=== PATIENT | male | born 1960 | race Caucasian/White ===

== ENCOUNTER 2017-10-01 06:47 | Day surgery (SDC) | payer BC ==
--- NOTE | 2017-10-01 07:03 | PCM.PREANE ---
Preanesthetic Assessment - Anesthesia/Transfusion/Family Hx Anesthesia History: Prior Anesthesia Without Reaction Family History of Anesthesia Reaction: No Transfusion History: No Prior Transfusion(s) - Review of Systems General: No Symptoms, Other Pulmonary: No Symptoms Cardiovascular: No Symptoms, Other (HTN, high cholesterol, 3 stents 2013) Gastrointestinal: No Symptoms Neurological: No Symptoms Other: Reports: Diabetes (type 2, on oral agents, blood glucose 151 at 0450) - Physical Assessment NPO Status Date: 10/01/17 NPO Status Time: 05:00 (had muffin) Pulse: 79 O2 Sat by Pulse Oximetry: 94 Respiratory Rate: 16 Blood Pressure: 163/70 Weight: 127.006 kg ASA Class: 2 Mental Status: Alert & Oriented x3 Airway Class: Mallampati = 2 Dentition: Reports: Normal Dentition Thyro-Mental Finger Breadths: 3 Mouth Opening Finger Breadths: 3 ROM/Head Extension: Full Lungs: Clear to Auscultation, Normal Respiratory Effort Cardiovascular: Regular Rate, Regular Rhythm - Allergies Allergies/Adverse Reactions: Allergies Allergy/AdvReac Type Severity Reaction Status Date / Time No Known Allergies Allergy Verified 09/30/17 15:39 - Blood Blood Available: No Product(s) Available: None - Anesthesia Plan Pre-Op Medication Ordered: None - Acknowledgements Anesthesia Type Planned: MAC Pt an Appropriate Candidate for the Planned Anesthesia: Yes Alternatives and Risks of Anesthesia Discussed w Pt/Guardian: Yes Pt/Guardian Understands and Agrees with Anesthesia Plan: Yes PreAnesthesia Questionnaire - HOME MEDS Home Medications: Home Meds Aspirin [Luci Chewable Aspirin] 81 mg PO DAILY 09/30/17 [History] Hydrochlorothiazide [Hydrochlorothiazide] 25 mg PO DAILY 09/30/17 [History] Lisinopril [Prinivil] 30 mg PO DAILY 09/30/17 [History] Nitroglycerin 0.4 mg SL ASDIRECTED PRN 09/30/17 [History] atorvaSTATin Calcium [Atorvastatin Calcium] 80 mg PO DAILY 09/30/17 [History] metFORMIN HCl [Metformin HCl] 1,000 mg PO BID 09/30/17 [History] - CURRENT (IN HOUSE) MEDS Current Meds: Current Medications Brimonidine Tartrate (Alphagan 0.2% Ophth Soln) 0 ml EYELF ASDIRECTED SOMMER Stop: 10/01/17 18:00 Cefuroxime Sodium (Zinacef) 0 mg EYELF ASDIRECTED SOMMER Stop: 10/01/17 18:00 Lidocaine HCl (Xylocaine-Mpf 1%) 10 ml INJECT ASDIRECTED SOMMER Stop: 10/01/17 18:00 Phenylephrine HCl (Saqib-Synephrine 2.5% Ophth Soln) 0 ml EYELF ASDIRECTED SOMMER Stop: 10/01/17 18:00 Pilocarpine HCl (Pilocar 4% Ophth Soln) 0 ml EYELF ASDIRECTED SOMMER Stop: 10/01/17 18:00 Polymyxin/Trimethoprim Sulfate (Polytrim Ophth Soln) 0 ml EYELF ASDIRECTED SOMMER Stop: 10/01/17 18:00 Tetracaine HCl (Tetracaine 0.5% Steri-Unit [place]) 0 ml EYELF ASDIRECTED SOMMER Stop: 10/01/17 18:00 Tropicamide (Mydriacyl 1% Ophth Soln) 0 ml EYELF ASDIRECTED SOMMER Stop: 10/01/17 18:00
[2017-10-01] MEDS: Polymyxin B/Trimethoprim 10 ML Bottle EYELF SCH ×4 (07:05→08:38)
[2017-10-01] MEDS: Brimonidine 0.2% Ophth Soln 5 ML Bottle EYELF SCH ×4 (07:12→08:38)
[2017-10-01] MEDS: Phenylephrine 2.5% Ophth Soln 2 ML Bot EYELF SCH ×6 (07:16→08:17)
[2017-10-01] MEDS: Lidocaine 1% PF 2 ML SDV INJECT SCH ×2 (07:41→08:26)
[2017-10-01] MEDS: Pilocarpine 4% Ophth Soln 15 ML Bot EYELF SCH ×2 (07:42→08:38)
[2017-10-01] MEDS: Tetracaine HCl/PF 0.5% 4 ML Bottle EYELF SCH ×3 (07:42→08:31)
[2017-10-01] MEDS: Cefuroxime 10 MG/ML SYRINGE EYELF SCH ×2 (07:43→08:36)
--- NOTE | 2017-10-01 08:40 | PCM48HPAN ---
Post Anesthesia Note - EVALUATION WITHIN 48HRS OF ANESTHETIC Vital Signs in Normal Range: Yes Patient Participated in Evaluation: Yes Respiratory Function Stable: Yes Airway Patent: Yes Cardiovascular Function Stable: Yes Hydration Status Stable: Yes Pain Control Satisfactory: Yes Nausea and Vomiting Control Satisfactory: Yes Mental Status Recovered: Yes Pulse Rate: 69 SaO2: 98 Resp Rate: 16 Temperature: 37 C Blood Pressure: 166/100
== END 2017-10-01 08:52 | disposition home or self-care (01) ==
LOC: JD.SDS 06:47
PROVIDERS: ATTEND Ophthalmology
DX: H25.89 Other age-related cataract (principal); H17.813 Minor opacity of cornea, bilateral; H02.834 Dermatochalasis of left upper eyelid; H02.831 Dermatochalasis of right upper eyelid; E11.9 Type 2 diabetes mellitus without complications; E78.00 Pure hypercholesterolemia, unspecified; I10 Essential (primary) hypertension; Z79.82 Long term (current) use of aspirin; Z79.899 Other long term (current) drug therapy; Z79.84 Long term (current) use of oral hypoglycemic drugs; Z95.5 Presence of coronary angioplasty implant and graft
CPT/HCPCS: 66984; J0697; V2632; A9270-GY; J2001

== ENCOUNTER 2017-10-29 10:11 | Day surgery (SDC) | payer BC ==
[~2017-10-29 10:11] MED LIST: Cefuroxime 10 MG/ML SYRINGE EYERT SCH; Lidocaine 1% PF 2 ML SDV INJECT SCH; Pilocarpine 4% Ophth Soln 15 ML Bot EYERT SCH
[2017-10-29] MEDS: Polymyxin B/Trimethoprim 10 ML Bottle EYERT SCH ×3 (10:43→12:31)
[2017-10-29] MEDS: Brimonidine 0.2% Ophth Soln 5 ML Bottle EYERT SCH ×3 (10:50→12:31)
--- NOTE | 2017-10-29 10:50 | PCM.PREANE ---
Preanesthetic Assessment - Anesthesia/Transfusion/Family Hx Anesthesia History: Prior Anesthesia Without Reaction Family History of Anesthesia Reaction: No Transfusion History: No Prior Transfusion(s) - Review of Systems General: No Symptoms Pulmonary: No Symptoms Cardiovascular: No Symptoms Gastrointestinal: No Symptoms Neurological: No Symptoms Other: Reports: Diabetes, Sinus Problem - Physical Assessment NPO Status Date: 10/28/17 NPO Status Time: 19:30 Pulse: 70 O2 Sat by Pulse Oximetry: 94 Respiratory Rate: 16 Blood Pressure: 140/77 Temperature: 97.6 F Height: 6 ft 1 in Weight: 127.006 kg ASA Class: 2 Mental Status: Alert & Oriented x3 Airway Class: Mallampati = 1 Dentition: Reports: Normal Dentition Thyro-Mental Finger Breadths: 3 Mouth Opening Finger Breadths: 3 ROM/Head Extension: Full Lungs: Clear to Auscultation, Normal Respiratory Effort Cardiovascular: Regular Rate, Regular Rhythm - Allergies Allergies/Adverse Reactions: Allergies Allergy/AdvReac Type Severity Reaction Status Date / Time No Known Allergies Allergy Verified 10/28/17 11:31 - Blood Blood Available: No - Acknowledgements Anesthesia Type Planned: MAC Pt an Appropriate Candidate for the Planned Anesthesia: Yes Alternatives and Risks of Anesthesia Discussed w Pt/Guardian: Yes Pt/Guardian Understands and Agrees with Anesthesia Plan: Yes PreAnesthesia Questionnaire Cardiovascular History: Reports: High Cholesterol, Hypertension Respiratory History: Reports: None Gastrointestinal History: Reports: None Musculoskeletal History: Reports: None Endocrine/Metabolic History: Reports: Diabetes, Type II, Obesity/BMI 30+ Oncologic (Cancer) History: Reports: None - Past Surgical History HEENT Surgical History: Reports: Cataract Surgery, Other (See Below) (deviateed septum as kid) GI Surgical History: Reports: Other (See Below) (hemorrhoidectomy) - SUBSTANCE USE Smoking Status *Q: Former Smoker (quit 7 years ago) Tobacco Use Within Last Twelve Months: No Second Hand Smoke Exposure: No Days Per Week of Alcohol Use: 2 Number of Drinks Per Day: 2 Total Drinks Per Week: 4 Recreational Drug Use History: No - HOME MEDS Home Medications: Home Meds Aspirin [Luci Chewable Aspirin] 81 mg PO DAILY 09/30/17 [History] Hydrochlorothiazide 25 mg PO DAILY 09/30/17 [History] Lisinopril [Prinivil] 30 mg PO DAILY 09/30/17 [History] Nitroglycerin 0.4 mg SL ASDIRECTED PRN 09/30/17 [History] atorvaSTATin Calcium [Atorvastatin Calcium] 80 mg PO DAILY 09/30/17 [History] metFORMIN HCl [Metformin HCl] 1,000 mg PO BID 09/30/17 [History] - CURRENT (IN HOUSE) MEDS Current Meds: Current Medications Brimonidine Tartrate (Alphagan 0.2% Ophth Soln) 0 ml EYERT ASDIRECTED SOMMER Stop: 10/29/17 18:00 Cefuroxime Sodium (Zinacef) 0 mg EYERT ASDIRECTED SOMMER Stop: 10/29/17 18:00 Lidocaine HCl (Xylocaine-Mpf 1%) 10 ml INJECT ASDIRECTED SOMMER Stop: 10/29/17 18:00 Phenylephrine HCl (Saqib-Synephrine 2.5% Ophth Soln) 0 ml EYERT ASDIRECTED SOMMER Stop: 10/29/17 18:00 Pilocarpine HCl (Pilocar 4% Ophth Soln) 0 ml EYERT ASDIRECTED SOMMER Stop: 10/29/17 18:00 Polymyxin/Trimethoprim Sulfate (Polytrim Ophth Soln) 0 ml EYERT ASDIRECTED SOMMER Stop: 10/29/17 18:00 Last Admin: 10/29/17 10:43 Dose: 1 drop Tetracaine HCl (Tetracaine 0.5% Steri-Unit [place]) 0 ml EYERT ASDIRECTED SOMMER Stop: 10/29/17 18:00 Tropicamide (Mydriacyl 1% Ophth Soln) 0 ml EYERT ASDIRECTED SOMMER Stop: 10/29/17 18:00 Discontinued Medications Tropicamide (Mydriacyl 1% Ophth Soln) 0 ml EYERT ASDIRECTED SOMMER Stop: 10/29/17 18:00
[2017-10-29] MEDS: Phenylephrine 2.5% Ophth Soln 2 ML Bot EYERT SCH ×5 (10:55→12:14)
[2017-10-29] MEDS: Tropicamide 1% Ophth Soln 3 ML Bottle EYERT SCH ×4 (11:00→11:43)
[2017-10-29] MEDS: Tetracaine HCl/PF 0.5% 4 ML Bottle EYERT SCH ×2 (11:55→12:20)
[2017-10-29 13:02] VITALS: BP 106/66
== END 2017-10-29 12:50 | disposition home or self-care (01) ==
LOC: JD.SDS 10:11
PROVIDERS: ATTEND Ophthalmology
DX: H25.811 Combined forms of age-related cataract, right eye (principal); H17.813 Minor opacity of cornea, bilateral; H02.834 Dermatochalasis of left upper eyelid; H02.831 Dermatochalasis of right upper eyelid; E11.9 Type 2 diabetes mellitus without complications; E78.00 Pure hypercholesterolemia, unspecified; I10 Essential (primary) hypertension; Z96.1 Presence of intraocular lens; Z87.891 Personal history of nicotine dependence; Z79.82 Long term (current) use of aspirin; Z79.84 Long term (current) use of oral hypoglycemic drugs; Z79.899 Other long term (current) drug therapy
CPT/HCPCS: 82962; A9270-GY; C1780; J0697

== ENCOUNTER 2022-01-05 14:37 | Inpatient (IN) | payer BC ==
[2022-01-05] MEDS ORDERED: Ketorolac 60 MG/2 ML SDV IM ONE (15:11)
[2022-01-05] MEDS ORDERED: Cyclobenzaprine 10 MG Tab PO ONE (16:03)
[2022-01-05] MEDS ORDERED: HYDROmorphone 1 MG/ML Syringe IM ONE (17:19)
[2022-01-05] MEDS ORDERED: Sodium Chloride 0.9% 10 ML Syringe FLUSH PRN (19:15)
[2022-01-05] MEDS ORDERED: methylPREDNISolone Sodium Succinate 125 MG/2 ML SDV IVPUSH ONE (19:24)
[2022-01-05 20:13] LABS: ESTIMATED GFR 85 mL/min (>60)
[2022-01-05] MEDS ORDERED: HYDROmorphone 0.5 MG/0.5 ML Syringe IVPUSH PRN (20:33)
[2022-01-05] MEDS: Ketorolac 15 MG/ML SDV IVPUSH SCH (21:48)
[2022-01-06] MEDS: methylPREDNISolone Sodium Succinate 125 MG/2 ML SDV IVPUSH SCH ×4 (03:12→21:05)
[2022-01-06] MEDS: Ketorolac 15 MG/ML SDV IVPUSH SCH ×4 (03:12→21:13)
[2022-01-06] MEDS ORDERED: Nitroglycerin 0.4 MG Tab.SL SL PRN ×2 (07:32→10:00)
[2022-01-06] MEDS ORDERED: Non-Formulary Medication 1 Each (Dulaglutide [Trulicity] 3 MG/0.5 ML Pen.Injctr) SQ SCH (07:45)
[2022-01-06] MEDS ORDERED: Hydrochlorothiazide 25 MG Tab PO SCH (09:00)
[2022-01-06] MEDS ORDERED: Lisinopril 20 MG Tab PO SCH (09:00)
[2022-01-06] MEDS ORDERED: Lisinopril 10 MG Tab PO SCH (09:00)
[2022-01-06] MEDS ORDERED: atorvaSTATin 40 MG Tab PO SCH (09:00)
[2022-01-06] MEDS ORDERED: Insulin Regular, Human 100 Units/ML 3 ML Vial SUBCUT SCH (09:00)
[2022-01-06] MEDS ORDERED: metFORMIN 500 MG Tab PO SCH (09:00)
[2022-01-06] MEDS ORDERED: HYDROmorphone 0.5 MG/0.5 ML Syringe IVPUSH PRN (10:00)
[2022-01-06] MEDS: Insulin Regular, Human 100 Units/ML 3 ML Vial SUBCUT SCH ×3 (14:39→20:20)
[2022-01-06] MEDS ORDERED: Acetaminophen/HYDROcodone 325-5 MG Tab PO PRN (15:00)
[2022-01-06] MEDS: Enoxaparin 40 MG/0.4 ML Syringe SUBCUT SCH (15:12)
[2022-01-06] MEDS: metFORMIN 500 MG Tab PO SCH (21:01)
[2022-01-07] MEDS: methylPREDNISolone Sodium Succinate 125 MG/2 ML SDV IVPUSH SCH ×3 (00:58→08:52)
[2022-01-07] MEDS: Ketorolac 15 MG/ML SDV IVPUSH SCH ×2 (05:39→10:04)
[2022-01-07] MEDS: Insulin Regular, Human 100 Units/ML 3 ML Vial SUBCUT SCH (08:35)
[2022-01-07] MEDS: metFORMIN 500 MG Tab PO SCH (08:51)
[2022-01-07] MEDS ORDERED: Metoprolol Succinate 50 MG Tab.ER PO SCH (09:00)
[2022-01-07] MEDS ORDERED: Hydrochlorothiazide 25 MG Tab PO SCH (09:00)
[2022-01-07] MEDS ORDERED: Lisinopril 10 MG Tab PO SCH (09:00)
[2022-01-07] MEDS ORDERED: atorvaSTATin 40 MG Tab PO SCH (09:00)
[2022-01-07] MEDS ORDERED: Rosuvastatin 10 MG Tab PO SCH (09:00)
[2022-01-07] MEDS ORDERED: Lisinopril 20 MG Tab PO SCH (09:00)
[2022-01-07] MEDS ORDERED: amLODIPine 5 MG Tab PO SCH (09:00)
[2022-01-07] MEDS ORDERED: Aspirin 81 MG Tab.Chew PO SCH (09:00)
[2022-01-07] MEDS ORDERED: Insulin Regular, Human 100 Units/ML 3 ML Vial SUBCUT ONE ×2 (09:00→09:50)
[2022-01-07] MEDS ORDERED: Lactated Ringers 1,000 ML IV ONE (09:49)
[2022-01-07] MEDS: Enoxaparin 40 MG/0.4 ML Syringe SUBCUT SCH (12:05)
== END 2022-01-07 11:51 | disposition home or self-care (01) | DRG 351 ==
LOC: JD.ED 14:37 → JD.MS 20:07 → UNDOADMOB 20:07 → OBSVTOIN 01-06 12:08
PROVIDERS: ADMIT Internal Medicine Cardiovascular Disease; ATTEND Internal Medicine Cardiovascular Disease
DX: S73.101A Unspecified sprain of right hip, initial encounter (principal); S76.312A Strain of muscle, fascia and tendon of the posterior muscle group at thigh level, left thigh, initial encounter; E66.9 Obesity, unspecified; I10 Essential (primary) hypertension; E78.5 Hyperlipidemia, unspecified; E11.9 Type 2 diabetes mellitus without complications; E78.00 Pure hypercholesterolemia, unspecified; Z98.49 Cataract extraction status, unspecified eye; Z95.5 Presence of coronary angioplasty implant and graft; Z87.891 Personal history of nicotine dependence; Z79.82 Long term (current) use of aspirin; Z79.84 Long term (current) use of oral hypoglycemic drugs; Z79.899 Other long term (current) drug therapy; Z68.37 Body mass index [BMI] 37.0-37.9, adult; X50.9XXA Other and unspecified overexertion or strenuous movements or postures, initial encounter; X50.0XXA Overexertion from strenuous movement or load, initial encounter
CPT/HCPCS: 36415; 72192; 72192-26; 73502-26-RT; 73502-RT; 73721-26-RT; 73721-RT; 80053; 82947; 85025; 86140; 96372; 96374; 96375; 97110-GP; 97116-GP; 97161-GP; 99221; 99284; 99284-25; A9270-GY; G0378; J1170; J1650; J1815-GY; J1885; J2930; J3360; J3490; J7120